=== PATIENT | female | born 1990 | race Caucasian/White ===

== ENCOUNTER 2019-05-05 22:53 | Emergency (ER) | payer SELFPAY ==
[~2019-05-05] VITALS: Ht 162.6 cm; Wt 48.1 kg
[2019-05-05 23:05] VITALS: BP 111/77
--- NOTE | 2019-05-05 23:10 | NUR ---
PT CARSON C/O "HAVING WITHDRAWLS FROM OXY, LAST DOSE X4 DAYS AGO, +COLD SWEAT. +CHILLS" -SOB AOX4. VSS. AMBULATORY. PT ON MONITOR IN BED 1. WILL CONTINUE TO MONITOR.
== END 2019-05-06 00:49 | disposition home or self-care (01) ==
LOC: ER 22:55
DX: F11.23 Opioid dependence with withdrawal (principal); F41.9 Anxiety disorder, unspecified